=== PATIENT | male | born 1965 | race Caucasian/White ===

== ENCOUNTER 2020-03-19 20:33 | Observation (INO) | payer BC, OTHER ==
--- NOTE | 2020-03-19 20:51 | RAD ---
Exam: Chest one view HISTORY:Chest pain. Comparison: 01/10/2014 FINDINGS: Cardiac silhouette: Normal Aorta: Unremarkable Pulmonary vessels: Normal Costophrenic angles: Clear LUNGS: No masses or consolidation. Pneumothorax: None Osseous abnormalities: None IMPRESSION: No acute cardiopulmonary process.
[2020-03-19 20:52] LABS: #Basophils 0.1 thou/uL (0.0-0.2); #Eosinphils 0.3 thou/uL (0.0-0.7); #Lymphocytes 4.5 thou/uL (1.20-3.40); #Monocytes 0.8 thou/uL (0.11-0.59); %Basophils 1.2 % (0.0-1.0); %Eosinophils 3.1 % (0.0-10.0); %Lymphocytes 41.9 % (21.0-51.0); %Neutrophils 46.9 % (42.0-75.0); Hemoglobin 14.3 g/dL (14.0-18.0); Mean Corpuscular HGB CONC 35.5 g/dL (32.0-36.0); Mean Corpuscular Hemoglobin 31.4 pg (27.0-31.0); Mean Corpuscular Volume 88.4 fL (78.0-98.0); Platelet Count 273 thou/uL (130-400); RBC Distribution Width 11.9 % (11.5-14.5); Red Blood Cell (RBC) Count 4.57 mill/uL (4.70-6.10); White Blood Cell (WBC) Count 10.7 thou/uL (4.8-10.8)
[2020-03-19 21:25] LABS: ALT (SGPT) 42 U/L (8-55); AST (SGOT) 53 U/L (5-34); Albumin 4.3 g/dL (3.5-5.0); Alkaline Phosphatase 60 U/L (40-110); Anion Gap 17 mmol/L (10-20); BUN (Urea Nitrogen) 10 mg/dL (8.4-25.7); Bilirubin, Total 0.5 mg/dL (0.2-1.2); CK (CPK) 116 U/L (30-200); Calc. Creatinine Clearance 0 mL/min (70-130); Calcium 8.8 mg/dL (7.8-10.44); Carbon Dioxide 22 mmol/L (22-29); Chloride 100 mmol/L (98-107); Estimated GFR-MDRD 83; Globulin 2.9 g/dL (2.4-3.5); Glucose 205 mg/dL (70-105); Lipase 91 U/L (8-78); Protein, Total 7.2 g/dL (6.0-8.3); Sodium 137 mmol/L (136-145)
[2020-03-19 21:30] LABS: Potassium 2.4 mmol/L (3.5-5.1)
[2020-03-19] MEDS ORDERED: Potassium Chloride 20 MEQ TAB ONE (21:51)
[2020-03-19] MEDS ORDERED: Nitroglycerin 0.4 MG TAB 1 EACH ONE (21:51)
[2020-03-19] MEDS ORDERED: Aspirin Chewable 81 MG TAB ONE ×2 (21:51→22:00)
[2020-03-19] MEDS ORDERED: Lidocaine 1% w/Epinephrine 1:100K 20 ML VIAL ONE (21:51)
[2020-03-19] MEDS ORDERED: Adacel (T-DAP) 0.5 ML SYRINGE ONE ×2 (21:51→22:04)
[2020-03-19] MEDS ORDERED: Triple Antibiotic Oint 1 GM Packet ONE (22:36)
[2020-03-19] MEDS ORDERED: Potassium Chloride 20 MEQ in Premix Bag 1 BAG IVPB SCH (22:45)
[2020-03-19] MEDS ORDERED: Magnesium 2 GM/50 ML 2 GM in Premix Bag 1 BAG IVPB SCH (22:45)
--- NOTE | 2020-03-20 00:14 | PDOC.HHP ---
Hospitalist HPI - History of Present Illness Chest pain History of Present Illness: PCP: Dr. Gretta Gions The patient is a 54-year-old male with a past medical history significant for hypertension, hyperlipidemia, diabetes type 2 ddo-apccein-ineyojhcg, GERD, alcohol abuse and anxiety presents to the ER for the above complaint. Patient reports consuming 1 pint of [place] apple liquor today. He reports that a pint would usually last 3 days, however, he received some bad news about a friend, so he felt the need to drink more today. While working on the drive shaft of his truck, he cut the web of his left hand, between his thumb and index finger with his pocket knife while trying to cut a zip tie. He went inside his home to clean the wound with hydrogen peroxide and apply a clean dressing. Shortly thereafter, while visiting with a friend on his front porch, he developed acute chest pain. The pain was located to his left chest, non-radiating, described as "someone sitting on my chest", 10-10 pain scale, exacerbated by nothing and relieved by nothing. The next thing he remembers, is waking up on the floor of his porch with his friend tapping him on his back. His friend told him that he passed out. He does not know how long the episode lasted, but he thinks it was for a few seconds. He denies headache, focal motor deficits, changes in speech , changes in vision. Denies neck pain or stiffness. Denies any recent fever or illness. Denies shortness of breath or cough. Denies abdominal pain, nausea , vomiting, diarrhea. Denies hemoptysis or hematochezia or melena. Has no urinary symptoms. He had a family member drive him to the ER for further evaluation. ED Course: VITAL SIGNS ThuMar 19, 2020 20:34 ABDULAZIZ [place] Brianna BP: 109/67, Pulse: 69, Resp: 20, Temp: 98.2 (Oral), Pain: 2, O2 sat: 96 on ( Room Air), Time: 03/19/2020 20:34. VITAL SIGNS ThuMar 19, 2020 21:00 ABDULAZIZ Kauffman Jennifer BP: 113/62, Pulse: 66, Resp: 13, O2 sat: 97 on (Room Air), Time: 03/19/2020 21: 00. VITAL SIGNS ThuMar 19, 2020 22:00 ABDULAZIZ Kauffman Jennifer BP: 98/63, Pulse: 61, Resp: 13, O2 sat: 98 on (Room Air), Time: 03/19/2020 22: 00. VITAL SIGNS ThuMar 19, 2020 22:48 ABDULAZIZ Kauffman Jennifer BP: 111/70, Pulse: 53, Resp: 19, O2 sat: 96 on (Room Air), Time: 03/19/2020 22:48 EKG normal sinus rhythm, 67 bpm, no ST elevation, LVH. Chest x-ray negative for any acute process. Initial troponin negative, CPK 116, mag 1.9, potassium 2.4, glucose 205. Medication administration: potassium chloride in 0.9%NaCl 20 mEq IV Piggy Back Given 23:19 03/19/2020 magnesium sulfate injection 2 g IV Piggy Back Given 22:49 03/19/2020 nitroglycerin sublingual 0.4 mg Sublingual Given 22:17 03/19/2020 aspirin oral 243 mg Oral Given 22:17 03/19/2020 Adacel(Tdap Adolesn/Adult)(PF) 0.5 mL Intramuscular Given 22:16 03/19/2020 KCl-40 40 mEq Oral Given 22:15 03/19/2020 lidocaine-epinephrine 10 - 1% mL Subcutaneous Given 22:15 03/19/2020 Hospitalist ROS - Review of Systems Constitutional: denies: fever, chills Respiratory: denies: cough, shortness of breath, SOB with excertion Cardiovascular: reports: chest pain. denies: palpitations, edema, light headedness Gastrointestinal: denies: nausea, vomiting, abdominal pain, diarrhea, constipation, melena, hematochezia Genitourinary: denies: dysuria, frequency, incontinence, hematuria Neurological: reports: weakness. denies: numbness, confusion, seizures All other systems reviewed; all pertinent +/- noted in HPI/Subj - Medication Medications: 1. Aspirin 81 mg p.o. daily 2. Omeprazole 20 mg p.o. daily 3. Hydrochlorothiazide 25 mg p.o. daily 4. Losartan 100 mg p.o. daily 5. Amlodipine 5 mg p.o. daily 6. Rosuvastatin 10 mg p.o. daily 7. Fluoxetine 20 mg p.o. daily 8. Metformin 1000 mg p.o. twice daily Allergies: HYDROcodone bitartrate (bulk), hydrocodone (Unconfirmed), Januvia, sitagliptin (Unconfirmed) Hospitalist History - Past Medical History Source: patient, RN notes reviewed Other Medical History: MEDICAL HISTORY Notes: HTN, HIGH CHOLESTEROL, DMII, GERD, anxiety MALE SURGICAL HISTORY Surgical history of appendectomy. PSYCHIATRIC HISTORY Psychiatric history includes, depression. SOCIAL HISTORY Patient drinks heavily (1 pint of [place] apple liquor every 3 days), Patient currently uses tobacco, CHEW A CAN A DAY, no illicit drug use. Works as a truck dock material mover. Ambulates without assistive devices. Lives with his girlfriend at home. FAMILY HISTORY Contributory for COPD and CAD (mother), cirrhosis (father) - Exam General Appearance: NAD, awake alert Eye: anicteric sclera ENT: normocephalic atraumatic, dry oral mucosa Neck: supple, symmetric, no JVD Heart: RRR, no murmur, no gallops, no rubs, normal peripheral pulses Respiratory: CTAB, no wheezes, no rales, no ronchi, normal chest expansion, no tachypnea Gastrointestinal: soft, non-tender, non-distended, normal bowel sounds, no guarding, no rigidity Extremities: no cyanosis, no clubbing, no edema Skin: no rashes Neurological: cranial nerve grossly intact, normal sensation to touch, no weakness, no focal deficits Musculoskeletal: normal tone, normal strength Psychiatric: normal affect, A&O x 3 Hospitalist Results - Labs Result Diagrams: 03/20/20 01:36 03/20/20 01:35 Lab results: WBC 10.7 thou/uL (4.8-10.8) 03/19/20 20:44 Hgb 14.3 g/dL (14.0-18.0) 03/19/20 20:44 Hct 40.4 % (42.0-52.0) L 03/19/20 20:44 MCV 88.4 fL (78.0-98.0) 03/19/20 20:44 Plt Count 273 thou/uL (130-400) 03/19/20 20:44 Neutrophils % 46.9 % (42.0-75.0) 03/19/20 20:44 Sodium 137 mmol/L (136-145) 03/19/20 20:44 Potassium 2.4 mmol/L (3.5-5.1) L* 03/19/20 20:44 Chloride 100 mmol/L (98-107) 03/19/20 20:44 Carbon Dioxide 22 mmol/L (22-29) 03/19/20 20:44 BUN 10 mg/dL (8.4-25.7) 03/19/20 20:44 Creatinine 0.95 mg/dL (0.7-1.3) 03/19/20 20:44 Glucose 205 mg/dL (70-105) H 03/19/20 20:44 Calcium 8.8 mg/dL (7.8-10.44) 03/19/20 20:44 Total Bilirubin 0.5 mg/dL (0.2-1.2) 03/19/20 20:44 AST 53 U/L (5-34) H 03/19/20 20:44 ALT 42 U/L (8-55) 03/19/20 20:44 Alkaline Phosphatase 60 U/L (40-110) 03/19/20 20:44 Creatine Kinase 116 U/L (30-200) 03/19/20 20:44 Troponin I Less than 0.010 ng/mL (< 0.028) 03/19/20 20:44 Serum Total Protein 7.2 g/dL (6.0-8.3) 03/19/20 20:44 Albumin 4.3 g/dL (3.5-5.0) 03/19/20 20:44 Lipase 91 U/L (8-78) H 03/19/20 20:44 - EKG Interpretation EK lead EKG shows normal sinus rhythm, Rate (beats per minute): 67, with no ectopics, Conduction normal, ST segments normal, T waves normal, [place], left, LVH present. - Radiology Interpretation Chest x-ray Status: report reviewed by oh Hospitalist H&P A/P - Problem (1) Chest pain Code(s): R07.9 - CHEST PAIN, UNSPECIFIED Status: Acute Assessment and Plan: Admit to telemetry floor, observation status. Expected length of stay less than 2 midnights.Patient presented normal blood pressure, normal pulse, normal respirations, afebrile. Heart score 4, Wells PE score 0. EKG normal sinus rhythm, LVH, no ST elevation. Chest x-ray negative. Initial troponin negative. Given aspirin and sublingual nitro x1. Will continue aspirin and as needed nitro. Trend troponins, check BNP, TSH, lipase, UA, UDS. N.p.o. Nuc med stress test and echocardiogram ordered. Continue home statin. (2) Syncope Code(s): R55 - SYNCOPE AND COLLAPSE Status: Acute Assessment and Plan: Patient reported syncopal episode on his porch after the acute onset of chest pain, slicing his hand and consuming large quantity of liquor this evening. Episode witnessed by friend and denies any seizure activity, postictal state, focal motor weakness. Patient denies any headaches, neck stiffness or pain. Unlikely neurologic etiology. Will order echocardiogram and check orthostatics. Give banana bag. Rule out cardiac etiology. (3) Hypokalemia Code(s): E87.6 - HYPOKALEMIA Status: Acute Assessment and Plan: Presented with a potassium of 2.4. Given 60 mEq of potassium in the ER. No EKG changes. Will recheck level in the a.m. (4) Alcohol abuse Code(s): F10.10 - ALCOHOL ABUSE, UNCOMPLICATED Status: Chronic Assessment and Plan: Reports drinking 1 pints of apple [place] liquor today. Usually drinks 1 pint every 3 days. Denies any history of alcohol withdrawals or seizures. Will order ASE protocol. Will give banana bag, thiamine and folate. Check electrolytes. Will obtain serum drug screen. (5) Tobacco abuse Code(s): Z72.0 - TOBACCO USE Status: Chronic Assessment and Plan: Reports dipping snuff. Unwilling to quit. Will psychologist counseling on tobacco cessation. (6) HTN (hypertension) Code(s): I10 - ESSENTIAL (PRIMARY) HYPERTENSION Status: Chronic Assessment and Plan: Patient presented with normal blood pressure. Will hold home HCTZ and restart losartan, amlodipine. (7) DMII (diabetes mellitus, type 2) Status: Chronic Assessment and Plan: Reports last hemoglobin A1c was last month. Upon review of chart, HA1c was 6.1 in February 2020. Hold metformin. Will start moderate sliding scale. Accu- Cheks AC/at bedtime. (8) HLD (hyperlipidemia) Code(s): E78.5 - HYPERLIPIDEMIA, UNSPECIFIED Status: Chronic Assessment and Plan: Patient had fasting lipid panel in November 2019. Total cholesterol 142, triglycerides 133, LDL 64, HDL 51, heart disease risk ratio 2.8. Patient takes rosuvastatin as home medication. Will restart home medication. (9) Laceration of left hand Code(s): S61.412A - LACERATION WITHOUT FOREIGN BODY OF LEFT HAND, INIT ENCNTR Status: Acute Assessment and Plan: Patient sliced the web of his left hand between his thumb and first digit. Received 5 interrupted sutures. Tdap up-to-date. Explained that he Luh does removed after discharge. - Plan Plan: No pharmacologic DVT prophylaxis. SCDs for DVT prophylaxis. PPI for GI prophylaxis. Medical decision maker is TITA () [phone] Hidalgo.
[2020-03-20] MEDS ORDERED: Dextrose 5% in Water 1,000 ML IV PRN (01:19)
[2020-03-20] MEDS ORDERED: Nitroglycerin 0.4 MG TAB (25 Tab Bottle) PO PRN (01:19)
[2020-03-20] MEDS ORDERED: HumaLOG 300 UNITS/3 ML VIAL SC PRN ×2 (01:19)
[2020-03-20] MEDS ORDERED: Dextrose 50% Abboject 50 ML SYRINGE SLOW IVP PRN (01:19)
[2020-03-20] MEDS ORDERED: Acetaminophen 325 MG TAB PO PRN (01:25)
[2020-03-20] MEDS ORDERED: Senokot S 8.6-50 MG TAB PO PRN (01:25)
[2020-03-20] MEDS ORDERED: Ondansetron ODT 4 MG TAB PO PRN (01:25)
[2020-03-20] MEDS ORDERED: Calcium Carbonate 500 MG ChewTAB PO PRN (01:25)
[2020-03-20] MEDS ORDERED: Ondansetron PF 4 MG/2 ML Vial IVP PRN (01:25)
[2020-03-20] MEDS ORDERED: Acetaminophen 650 MG Suppository PR PRN (01:25)
[2020-03-20] MEDS ORDERED: Diazepam 5 MG TAB PO PRN (01:31)
[2020-03-20 01:33] VITALS: BMI 29.5
[2020-03-20] MEDS ORDERED: Thiamine HCl 200 MG/2 ML VIAL IM SCH (01:45)
[2020-03-20 01:51] LABS: Band 2 % (5-11); Eosinophils 2 % (0-10); Lymphocytes 36 % (21-51); MDiff Complete? YES; Mean Corpuscular HGB CONC 34.4 g/dL (32.0-36.0); Mean Corpuscular Hemoglobin 30.6 pg (27.0-31.0); Mean Corpuscular Volume 88.9 fL (78.0-98.0); Mean Platelet Volume 6.9 fL (7.4-10.4); Monocytes 3 % (0-10); Neutrophil 57 % (42-75); Platelet Count 249 thou/uL (130-400); Red Blood Cell (RBC) Count 4.57 mill/uL (4.70-6.10); White Blood Cell (WBC) Count 8.4 thou/uL (4.8-10.8)
[2020-03-20] MEDS ORDERED: Multivitamins, Adult 10 ML, Thiamine HCl 100 MG, Folic Acid 1 MG in Dextrose 5 %-0.45 %... IV SCH (02:00)
[2020-03-20 02:02] LABS: Acetaminophen Less than 6.0 mcg/mL (10.0-30.0); Alcohol 141 mg/dL (Less than 10); Salicylate Less than 8.0 mg/dL (15.0-30.0)
[2020-03-20 02:05] LABS: Troponin I Less than 0.010 ng/mL (< 0.028)
[2020-03-20 02:06] LABS: Bacteria/HPF None Seen HPF (None Seen); Bilirubin Negative (Negative); Blood, Urine Negative (Negative); Clarity Clear (Clear); Glucose, Urine (Dipstick) Normal (Negative); Ketone, Urine Negative (Negative); Leukocyte Negative Leu/uL (Negative); Nitrite Negative (Negative); Protein, Urine (Dipstick) Negative (Neg-Trace); RBC/HPF 0-3 HPF (0-3); Specific Gravity, Urine 1.003 (1.002-1.036); Squamous Epithelial None Seen HPF (0-3); Urobilinogen Normal mg/dL (Less than 2); WBC/HPF None Seen HPF (0-3)
[2020-03-20 02:14] LABS: Amphetamine Not Detected (NotDetected); Barbiturates Screen Not Detected (NotDetected); Benzodiazepine Screen Not Detected (NotDetected); Cocaine Metabolite Screen Not Detected (NotDetected); Medtox Control Line Valid? VALID (VALID); Medtox Reader # READER 4; Methadone Not Detected (NotDetected); Methamphetamine Not Detected (NotDetected); Opiate Screen Not Detected (NotDetected); Oxycodone Screen Not Detected (NotDetected); Phencyclidine (PCP) Not Detected (NotDetected); THC/Cannabinoid Screen Not Detected (NotDetected); Tricyclic Screen Not Detected (NotDetected)
[2020-03-20 02:22] LABS: ALT (SGPT) 42 U/L (8-55); AST (SGOT) 54 U/L (5-34); Albumin 4.2 g/dL (3.5-5.0); Alkaline Phosphatase 61 U/L (40-110); Anion Gap 16 mmol/L (10-20); BUN (Urea Nitrogen) 9 mg/dL (8.4-25.7); Bilirubin, Total 0.5 mg/dL (0.2-1.2); Calc. Creatinine Clearance 136 mL/min (70-130); Calcium 8.7 mg/dL (7.8-10.44); Carbon Dioxide 24 mmol/L (22-29); Chloride 103 mmol/L (98-107); Estimated GFR-MDRD Greater than 90; Glucose 148 mg/dL (70-105); Potassium 3.7 mmol/L (3.5-5.1); Protein, Total 7.2 g/dL (6.0-8.3); Sodium 139 mmol/L (136-145)
[2020-03-20 02:24] LABS: Thyroid Stimulating Hormone 1.6169 uIU/mL (0.35-4.94)
[2020-03-20 05:09] LABS: Troponin I 0.014 ng/mL (< 0.028)
[2020-03-20] MEDS: Rosuvastatin 10 MG TAB PO SCH (07:44)
[2020-03-20] MEDS: Aspirin 81 mg Enteric Coated Tablet PO SCH (07:44)
[2020-03-20] MEDS: Losartan 25 MG TAB PO SCH (07:44)
[2020-03-20] MEDS: Fish Oil 1,000 MG CAP PO SCH (07:45)
[2020-03-20] MEDS: Multivitamin W/ Minerals 1 TAB PO SCH (07:45)
[2020-03-20] MEDS: Amlodipine 5 MG TAB PO SCH (07:47)
[2020-03-20] MEDS ORDERED: Folic Acid 1 MG TAB PO SCH (09:00)
[2020-03-20] MEDS ORDERED: CINNAMON BARK 500 MG PO SCH (09:00)
[2020-03-20] MEDS ORDERED: ADENOSINE 60 MG/20 ML VIAL ONE (11:34)
[2020-03-20 12:32] LABS: SARS-CoV-2 MS2 Positive; SARS-CoV-2 N Gene Negative; SARS-CoV-2 S Gene Negative; SARS-CoV-2 by NAA Not Detected (NotDetected); SARS-CoV-2 orf1ab Negative
--- NOTE | 2020-03-20 15:18 | NM ---
NUCLEAR MEDICINE CARDIAC MYOCARDIAL PERFUSION SPECT EJECTION FRACTION STUDY WALL MOTION CINE: DATE: 03/20/2020 HISTORY: 54-year-old male with hypertension, diabetes mellitus, and dyslipidemia with family history of bennett ry artery disease, presents with chest pain TECHNIQUE: Number of days: 1 Rest study: Technetium 99m-sestamibi (Cardiolite) dose: 9.8 mCi Pharmacologic stress: Adenosine dose: 52.1 mg Stress study: Technetium 99m-sestamibi (Cardiolite) dose: 27.8 mCi FINDINGS: CARDIAC (MYOCARDIAL PERFUSION) SPECT There is a fixed anteroseptal apical defect which may or may not represent infarction/scar. There are no reversible myocardial perfusion defects. EJECTION FRACTION STUDY Left ventricular EF = 55 % WALL MOTION CINE Normal IMPRESSION: No evidence of reversible ischemia.
--- NOTE | 2020-03-20 20:59 | PDOC.EVN ---
Event Note - Event Note Event Note: Patient states chest pain has resolved. He ambulated without dizziness or SOB. He reports drinking a pint of alcohol every few days. Physical exam: CV: RRR, no murmurs, rubs, gallops Lungs: CTAB Abdomen: + BS, soft, nontender, nondistended Ext: no edema CBC and BMP: unremarkable Patient is 54 year old admitted with syncope and chest pain, also found to have alcohol intoxication Alcohol intoxication - plasma alcohol > 100. On ASE protocol, doesn't appear to be withdrawing -sp banana bag, thiamine and folate Chest pain - trop negative. Nuclear stress tests shows fixed defect. Check ECHO Syncope - possibly from alcohol intoxication - ECHO pending Folate deficiency - folate level low at 3. Starting folic acid supplementation Transaminitis - AST 54. Likely alcoholism
[2020-03-20] MEDS ORDERED: FLUoxetine HCl 20 MG CAP PO SCH (21:00)
[2020-03-21] MEDS ORDERED: Diazepam 5 MG TAB PO PRN (04:00)
[2020-03-21 07:42] VITALS: BP 121/71; TEMP 97.7
[2020-03-21] MEDS: Aspirin 81 mg Enteric Coated Tablet PO SCH (08:14)
[2020-03-21] MEDS: Losartan 25 MG TAB PO SCH (08:14)
[2020-03-21] MEDS: Rosuvastatin 10 MG TAB PO SCH (08:14)
[2020-03-21] MEDS: Multivitamin W/ Minerals 1 TAB PO SCH (08:15)
[2020-03-21] MEDS: Fish Oil 1,000 MG CAP PO SCH (08:15)
[2020-03-21] MEDS: Amlodipine 5 MG TAB PO SCH (08:16)
[2020-03-21] MEDS ORDERED: Thiamine 100 MG TAB PO SCH ×2 (09:00)
[2020-03-21] MEDS ORDERED: Folic Acid 1 MG TAB PO SCH (09:00)
[2020-03-21] MEDS ORDERED: Magnesium Oxide 400 MG TAB PO SCH (09:00)
--- NOTE | 2020-03-22 05:10 | DIS ---
DATE OF ADMISSION: 03/19/2020 DATE OF DISCHARGE: 03/21/2020 DISCHARGE DIAGNOSES: 1. Syncope, possibly secondary to alcohol intoxication. 2. Chest pain, possibly secondary to excessive alcohol intake versus gastroesophageal reflux disease. 3. Folate deficiency. CONSULTATIONS: None. PROCEDURES: None. BRIEF HISTORY OF PRESENT ILLNESS: This is a 54-year-old male with past medical history of hypertension, hyperlipidemia, type 2 diabetes, who presented to the emergency room for chest pain. The patient reported that he received bad news about a friend. He accidentally cut his thumb and index finger with a pocket knife while trying to cut his zip tie. He drank one pint of [place] apple liquor. Shortly thereafter, he developed acute chest pain, which he described as someone sitting on his chest. He stated that the pain occurred while lying down. He reported that the pain lasted for approximately an hour. His friend thought that he had passed out. The patient thinks that lasted just for a few seconds. The patient states that his symptoms resolved after receiving nitroglycerin in the emergency room. His EKG showed no ischemic changes. He was admitted for further workup. HOSPITAL COURSE: Chest pain: The patient had three sets of troponins, which were negative. His EKG showed normal sinus rhythm with mild LVH. He did have a nuclear stress test performed, which showed a fixed anteroseptal-apical defect, which may or may not represent an infarction or scar. ECHO was unremarkable. The patient denied any chest pain or shortness of breath at the time of discharge. He states that he takes aspirin and a statin at home. He was prescribed a nitroglycerin patch to take as needed for chest pain. He is advised to follow up with his PCP and to consider an echo as an outpatient. Syncope: The patient reportedly had passed out after drinking a pint of alcohol. This may have been secondary to intoxication. He had an echo done, which showed moderate MR. EF 50% to 55%. Diastolic dysfunction. The patient was monitored on telemetry and there were no acute events. Follow up with his PCP as an outpatient. Folate deficiency: The patient was found to have a low folate level. He was started on folic acid supplements. Alcohol: The patient states that he drinks a pint of alcohol frequently. His alcohol level was elevated while in the hospital. He was discharged with thiamine and folic acid supplements and was advised to stop drinking to avoid progression to cirrhosis. DISCHARGE PHYSICAL EXAMINATION: VITAL SIGNS: Temperature 97.7, heart rate 66, respiratory rate 18, O2 saturation 94% on room air, and blood pressure 121/71. GENERAL: The patient is alert, awake, and oriented x3. CVS: Regular rate and rhythm with no murmurs, rubs, or gallops. LUNGS: Clear to auscultation bilaterally. ABDOMEN: Positive bowel sounds. Soft, nontender, and nondistended. EXTREMITIES: No edema. PERTINENT LABORATORY DATA: CBC 03/20: Normal. BMP 03/20: Normal. LFTs 03/20: AST 54, ALT 42, alkaline phosphatase 61. Troponin I: Negative x3. Folate: 3.80. Vitamin B12: 439. TSH: 1.6. UA 03/20: Negative. U tox 03/20: Negative. Plasma alcohol level: 141. COVID serology 03/20: Negative. IMAGING: Chest x-ray 03/19: Shows no acute process. Nuclear stress test 03/20: Shows no evidence of reversible ischemia. Fixed anteroseptal-apical defect, which may or may not represent infarction/scar. Echo 03/21: EF 50% to 55%. Diastolic dysfunction. Left atrium is mildly dilated. Moderate MR. Aortic valve is sclerotic. Mild TR. DISCHARGE CONDITION: Stable. ACTIVITY: As tolerated. DIET: Regular diet. DISCHARGE MEDICATIONS: 1. Nitroglycerin 0.4 mg p.o. q.5 minutes p.r.n. 2. Folic acid 1 mg p.o. daily. 3. Thiamine 100 mg p.o. daily. DISCONTINUED MEDICATIONS: Hydrochlorothiazide. DISCHARGE INSTRUCTIONS: The patient to follow up with PCP in a week. He should take nitroglycerin as needed for chest pain. He was advised to stop taking his hydrochlorothiazide. Please feel free to resume his blood pressure if it become elevated again. Job ID: [id number] [facility]
== END 2020-03-21 12:00 | disposition home or self-care (01) ==
LOC: ERS 20:33 → 2SW 23:43
PROVIDERS: ADMIT Family Medicine; ATTEND Family Medicine
DX: R42 Dizziness and giddiness (principal); R07.9 Chest pain, unspecified; E53.8 Deficiency of other specified B group vitamins; F10.129 Alcohol abuse with intoxication, unspecified; E87.6 Hypokalemia; S61.412A Laceration without foreign body of left hand, initial encounter; E11.9 Type 2 diabetes mellitus without complications; E78.5 Hyperlipidemia, unspecified; I10 Essential (primary) hypertension; I08.1 Rheumatic disorders of both mitral and tricuspid valves; F41.9 Anxiety disorder, unspecified; K21.9 Gastro-esophageal reflux disease without esophagitis; F17.220 Nicotine dependence, chewing tobacco, uncomplicated; R74.0 Nonspecific elevation of levels of transaminase and lactic acid dehydrogenase [LDH]; Z20.828 Contact with and (suspected) exposure to other viral communicable diseases; Z79.82 Long term (current) use of aspirin; Z79.84 Long term (current) use of oral hypoglycemic drugs; Z79.899 Other long term (current) drug therapy; Z88.5 Allergy status to narcotic agent; Z88.8 Allergy status to other drugs, medicaments and biological substances
CPT/HCPCS: 12001; 36415; 36416; 71045; 78452; 80053; 80306; 80307; 81001; 82550; 82607; 82746; 83690; 83735; 83880; 84443; 84484; 85007; 85025; 85027; 87635; 90471; 90715; 93005; 93017; 93306; 94760; 96365; 96366; 96367; 96375; A9500; G0378; J0153; J3411; J3475; J3480; J7042; U0003

== ENCOUNTER 2022-10-11 18:34 | Emergency (ER) | payer BC, OTHER ==
[~2022-10-11 18:34] MED LIST: Iopamidol-370 76% 500 ML MDV (1 ML CHARGE) ONE
[2022-10-11 19:06] LABS: #Basophils 0.1 thou/uL (0.0-0.2); #Eosinphils 0.2 thou/uL (0.0-0.7); #Lymphocytes 2.9 thou/uL (1.20-3.40); #Neutrophils 4.6 thou/uL (1.40-6.50); %Basophils 0.8 % (0.0-1.0); %Eosinophils 2.2 % (0.0-10.0); %Lymphocytes 33.3 % (21.0-51.0); %Monocytes 11.3 % (0.0-10.0); %Neutrophils 52.4 % (42.0-75.0); Mean Corpuscular HGB CONC 35.7 g/dL (32.0-36.0); Mean Corpuscular Hemoglobin 33.3 pg (27.0-31.0); Mean Corpuscular Volume 93.1 fl (78.0-98.0); Mean Platelet Volume 6.7 fL (7.4-10.4); Platelet Count 163 10x3/uL (130-400); RBC Distribution Width 12.3 % (11.5-14.5); Red Blood Cell (RBC) Count 3.91 mill/uL (4.70-6.10); White Blood Cell (WBC) Count 8.7 10x3/uL (4.8-10.8)
[2022-10-11 19:27] LABS: ALT (SGPT) 49 U/L (8-55); AST (SGOT) 87 U/L (5-34); Albumin 4.2 g/dL (3.5-5.0); Alkaline Phosphatase 69 U/L (40-110); Anion Gap 19 mmol/L (10-20); BUN (Urea Nitrogen) 13 mg/dL (8.4-25.7); Bilirubin, Total 0.5 mg/dL (0.2-1.2); Calc. Creatinine Clearance 0 mL/min (70-130); Calcium 9.6 mg/dL (7.8-10.44); Carbon Dioxide 17 mmol/L (22-29); Chloride 107 mmol/L (98-107); Estimated GFR 65; Globulin 3.1 g/dL (2.4-3.5); Glucose 119 mg/dL (70-105); Potassium 3.2 mmol/L (3.5-5.1); Protein, Total 7.3 g/dL (6.0-8.3); Sodium 140 mmol/L (136-145)
[2022-10-11] MEDS ORDERED: Lidocaine 1% PF 5 ML VIAL ONE (19:55)
[2022-10-11] MEDS ORDERED: Lidocaine 1% w/Epinephrine 1:100K 20 ML VIAL ONE (19:57)
[2022-10-11] MEDS ORDERED: Lidocaine 1% MPF 2 ML VIAL ONE (19:58)
[2022-10-11] MEDS ORDERED: Bacitracin 1 PK ONE (20:47)
== END 2022-10-11 21:25 | disposition home or self-care (01) ==
LOC: ERS 18:34
DX: S81.852A Open bite, left lower leg, initial encounter (principal); E11.9 Type 2 diabetes mellitus without complications; I10 Essential (primary) hypertension; E78.5 Hyperlipidemia, unspecified; K21.9 Gastro-esophageal reflux disease without esophagitis; W55.41XA Bitten by pig, initial encounter
CPT/HCPCS: 12034; 36415; 80053; 85025; 86850; 86900; 86901; Q9967

== ENCOUNTER 2024-04-09 17:29 | Inpatient (IN) | payer BC, OTHER ==
[2024-04-09 18:02] LABS: #Basophils 0.05 10x3/uL (0.0-0.2); %Basophils 0.8 % (0.0-1.0); %Eosinophils 1.5 % (0.0-10.0); %Lymphocytes 29.1 % (21.0-51.0); %Monocytes 6.3 % (0.0-10.0); %Neutrophils 61.2 % (42.0-75.0); Hemoglobin 8.8 g/dL (14.0-18.0); Mean Corpuscular HGB CONC 32.6 g/dL (32.0-36.0); Mean Corpuscular Hemoglobin 29.7 pg (27.0-31.0); Mean Corpuscular Volume 91.2 fL (78.0-98.0); Mean Platelet Volume 9.1 fL (7.4-10.4); Platelet Count 130 10x3/uL (130-400); RBC Distribution Width 13.5 % (11.5-14.5); Red Blood Cell (RBC) Count 2.96 mill/uL (4.70-6.10)
[2024-04-09 18:10] LABS: INR-International Normal Ratio 1.1; Prothrombin Time 14.1 sec (12.0-14.7)
[2024-04-09 18:11] LABS: PTT 26.1 sec (22.9-36.1)
[2024-04-09 18:13] LABS: Alcohol 295.8 mg/dL (Less than 10)
[2024-04-09 18:16] LABS: ALT (SGPT) 69 U/L (8-55); AST (SGOT) 274 U/L (5-34); Albumin 3.3 g/dL (3.5-5.0); Alkaline Phosphatase 144 U/L (40-110); Anion Gap 19 mmol/L (10-20); BUN (Urea Nitrogen) 9 mg/dL (8.4-25.7); Bilirubin, Total 0.7 mg/dL (0.2-1.2); Calc. Creatinine Clearance 0 mL/min (70-130); Calcium 8.4 mg/dL (7.8-10.44); Carbon Dioxide 19 mmol/L (22-29); Chloride 109 mmol/L (98-107); Estimated GFR 99; Globulin 3.3 g/dL (2.4-3.5); Glucose 125 mg/dL (70-105); Potassium 3.1 mmol/L (3.5-5.1); Protein, Total 6.6 g/dL (6.0-8.3); Sodium 144 mmol/L (136-145)
[2024-04-09] MEDS ORDERED: CEFAZOLIN 2 GM VIAL ONE (18:17)
[2024-04-09] MEDS ORDERED: Boostrix 0.5 ML (Tdap) VIAL (>/=7 yrs of age) ONE (18:18)
[2024-04-09] MEDS ORDERED: Sodium Chloride 0.9% 100 ML ONE (18:18)
[2024-04-09] MEDS ORDERED: Bacitracin 1 PK ONE ×2 (18:21→20:00)
[2024-04-09] MEDS ORDERED: Lidocaine 1% w/Epinephrine 1:100K 20 ML VIAL ONE ×2 (18:21→18:54)
[2024-04-09] MEDS ORDERED: hydrALAZINE 20 MG/ML VIAL SLOW IVP PRN (18:36)
[2024-04-09] MEDS ORDERED: Ondansetron PF 4 MG/2 ML Vial IVP PRN (18:36)
[2024-04-09] MEDS ORDERED: Ondansetron ODT 4 MG TAB PO PRN (18:36)
[2024-04-09] MEDS ORDERED: Ketorolac Tromethamine 30 MG (1 mL) VIAL ONE ×2 (20:15→21:22)
[2024-04-09] MEDS ORDERED: Magnesium 2 GM/50 ML BAG (IN WATER) ONE (20:15)
[2024-04-09] MEDS ORDERED: Thiamine HCl 200 MG/2 ML VIAL ONE (20:15)
[2024-04-09 20:37] LABS: Troponin I Less than 0.010 ng/mL (< 0.028)
[2024-04-09] MEDS ORDERED: Morphine 4 MG/ML VIAL ONE (21:22)
[2024-04-09 21:32] LABS: Lactic Acid 3.51 mmol/L (0.5-2.2)
[2024-04-09 22:21] VITALS: BMI 25.0
[2024-04-09] MEDS: TETANUS, DIPHTHERIA TOX,ADULT (TDVAX) 0.5 ML VIAL IM ONE (22:34)
[2024-04-09] MEDS: Lactated Ringer's 1,000 ML IV SCH (22:45)
[2024-04-09] MEDS: Acetaminophen 500 MG TAB PO SCH (22:45)
[2024-04-09] MEDS: Famotidine 20 MG TAB PO SCH (22:45)
[2024-04-10] MEDS: Ketorolac Tromethamine 30 MG (1 mL) VIAL IVP SCH (00:27)
[2024-04-10 05:36] LABS: #Basophils 0.03 10x3/uL (0.0-0.2); %Basophils 0.6 % (0.0-1.0); %Eosinophils 0.6 % (0.0-10.0); %Lymphocytes 29.1 % (21.0-51.0); %Monocytes 11.4 % (0.0-10.0); %Neutrophils 58.1 % (42.0-75.0); Hematocrit 24.3 % (42.0-52.0); Mean Corpuscular HGB CONC 32.9 g/dL (32.0-36.0); Mean Corpuscular Hemoglobin 29.9 pg (27.0-31.0); Mean Corpuscular Volume 90.7 fL (78.0-98.0); Mean Platelet Volume 9.4 fL (7.4-10.4); Platelet Count 86 10x3/uL (130-400); RBC Distribution Width 13.4 % (11.5-14.5); Red Blood Cell (RBC) Count 2.68 mill/uL (4.70-6.10)
[2024-04-10 05:40] LABS: Anion Gap 12 mmol/L (10-20); BUN (Urea Nitrogen) 7 mg/dL (8.4-25.7); Calc. Creatinine Clearance 114 mL/min (70-130); Calcium 8.4 mg/dL (7.8-10.44); Carbon Dioxide 24 mmol/L (22-29); Chloride 107 mmol/L (98-107); Estimated GFR 103; Glucose 103 mg/dL (70-105); Potassium 3.8 mmol/L (3.5-5.1); Sodium 139 mmol/L (136-145)
[2024-04-10] MEDS: traMADol HCl 50 MG TAB PO PRN (08:37)
[2024-04-11] MEDS ORDERED: Ibuprofen 200 MG TAB PO PRN (11:01)
[2024-04-11 12:09] VITALS: BP 152/81; TEMP 98.3
== END 2024-04-11 15:23 | disposition home or self-care (01) | DRG 184 ==
LOC: ERS 17:29 → SURG B 18:36
PROVIDERS: ADMIT Specialist; ATTEND Specialist
PROC: 0HQ1XZZ Repair Face Skin, External Approach (ICD-10-PCS; principal; 2024-04-09)
DX: S22.43XA Multiple fractures of ribs, bilateral, initial encounter for closed fracture (principal); S12.200A Unspecified displaced fracture of third cervical vertebra, initial encounter for closed fracture; S22.019A Unspecified fracture of first thoracic vertebra, initial encounter for closed fracture; S22.059A Unspecified fracture of T5-T6 vertebra, initial encounter for closed fracture; S12.300A Unspecified displaced fracture of fourth cervical vertebra, initial encounter for closed fracture; S12.400A Unspecified displaced fracture of fifth cervical vertebra, initial encounter for closed fracture; F10.129 Alcohol abuse with intoxication, unspecified; S01.81XA Laceration without foreign body of other part of head, initial encounter; V89.2XXA Person injured in unspecified motor-vehicle accident, traffic, initial encounter; E11.9 Type 2 diabetes mellitus without complications; I10 Essential (primary) hypertension; E78.00 Pure hypercholesterolemia, unspecified; K21.9 Gastro-esophageal reflux disease without esophagitis; Z90.49 Acquired absence of other specified parts of digestive tract; F32.A Depression, unspecified; Z88.8 Allergy status to other drugs, medicaments and biological substances; S82.832A Other fracture of upper and lower end of left fibula, initial encounter for closed fracture
CPT/HCPCS: 36415; 70450; 70498; 71045; 71260; 72125; 74177; 80048; 80053; 80307; 83605; 83690; 84484; 85025; 85610; 85730; 86850; 86900; 86901; 90715; 93005; G0390; J1885; J2272; J3411; J3475; J7120; Q9967

== ENCOUNTER 2024-04-25 12:00 | Outpatient (CLI) | payer BC, OTHER | END 2024-04-25 12:01 | disposition home or self-care (01) | LOC: RAD 12:00 | PROVIDERS: ATTEND Neurological Surgery | DX: S12.300D Unspecified displaced fracture of fourth cervical vertebra, subsequent encounter for fracture with routine healing (principal); S12.600D Unspecified displaced fracture of seventh cervical vertebra, subsequent encounter for fracture with routine healing | CPT/HCPCS: 72040 ==

== ENCOUNTER 2024-06-03 09:16 | Outpatient (CLI) | payer BC, OTHER | END 2024-06-03 09:17 | disposition home or self-care (01) | LOC: RAD 09:16 | PROVIDERS: ATTEND Neurological Surgery | DX: S12.300D Unspecified displaced fracture of fourth cervical vertebra, subsequent encounter for fracture with routine healing (principal); S12.600D Unspecified displaced fracture of seventh cervical vertebra, subsequent encounter for fracture with routine healing | CPT/HCPCS: 72040 ==

== ENCOUNTER 2024-06-06 15:54 | Outpatient (CLI) | payer BC, OTHER | END 2024-06-06 15:55 | disposition home or self-care (01) | LOC: RAD 15:54 | PROVIDERS: ATTEND Neurological Surgery | DX: S12.600A Unspecified displaced fracture of seventh cervical vertebra, initial encounter for closed fracture (principal); M47.812 Spondylosis without myelopathy or radiculopathy, cervical region | CPT/HCPCS: 72040 ==

== ENCOUNTER 2024-06-09 12:09 | Outpatient (CLI) | payer BC, OTHER | END 2024-06-09 12:10 | disposition home or self-care (01) | LOC: RAD 12:09 | PROVIDERS: ATTEND Neurological Surgery | DX: S12.300D Unspecified displaced fracture of fourth cervical vertebra, subsequent encounter for fracture with routine healing (principal); S12.600D Unspecified displaced fracture of seventh cervical vertebra, subsequent encounter for fracture with routine healing; M43.12 Spondylolisthesis, cervical region | CPT/HCPCS: 72050 ==